=== PATIENT | male | born 1960 | race Caucasian/White ===

== ENCOUNTER 2025-03-01 06:49 | Day surgery (SDC) | payer MEDICARE, OTHER ==
[~2025-03-01] VITALS: Ht 171.4 cm; Wt 95.9 kg
[2025-03-01] MEDS ORDERED: LIDOCAINE 4% 50 ML SOLUTION TP ONE (06:50)
[2025-03-01] MEDS ORDERED: BENZOCAINE 20% 50 MCG/SPRAY 57 GM TP ONE (06:50)
[2025-03-01] MEDS ORDERED: ALBUTEROL SULFATE 2.5 MG/0.5 ML NEB SOLUTION NEB ONE (06:50)
[2025-03-01] MEDS ORDERED: LIDOCAINE 2% 11 ML JELLY TP ONE (06:50)
[2025-03-01] MEDS ORDERED: SODIUM CHLORIDE 0.9% 1,000 ML ONE (07:14)
[2025-03-01] MEDS ORDERED: DiphenhydrAMINE HCL 50 MG/ML VIAL ONE (07:35)
[2025-03-01] MEDS ORDERED: SODIUM TETRADECYL SULFATE 3% 60 MG/2 ML VIAL IVP ONE (07:35)
[2025-03-01] MEDS ORDERED: FLUMAZENIL 0.1 MG/ML 5 ML VIAL IVP ONE (07:35)
[2025-03-01] MEDS ORDERED: NALOXONE HCL 0.4 MG/ML VIAL ONE (07:35)
[2025-03-01] MEDS ORDERED: ATROPINE SULFATE 0.1 MG/ML 10 ML SYRINGE IVP ONE (07:36)
[2025-03-01] MEDS ORDERED: EPINEPHrine 1:10,000 [1 MG/10 ML] SYRINGE ONE (07:36)
[2025-03-01] MEDS ORDERED: MIDAZOLAM HCL 5 MG/ML VIAL ONE (07:39)
[2025-03-01] MEDS ORDERED: FentaNYL CITRATE PF 100 MCG/2 ML VIAL ONE (07:39)
[2025-03-01] MEDS ORDERED: MIDAZOLAM HCL 2 MG/2 ML VIAL ONE (07:45)
[2025-03-01] MEDS: SODIUM CHLORIDE 0.9% 1,000 ML IV ONE (08:21)
[2025-03-01] MEDS ORDERED: OMEP20CA12 PO (08:39)
[2025-03-01] MEDS ORDERED: TRAZ-257 PO (08:39)
[2025-03-01] MEDS ORDERED: POTA8CAP20 PO (08:39)
[2025-03-01] MEDS ORDERED: ASPI-1444 PO (08:39)
[2025-03-01] MEDS ORDERED: OXYB5TAB20 PO (08:39)
[2025-03-01] MEDS ORDERED: CLOZ100T61 PO (08:39)
[2025-03-01] MEDS ORDERED: ARIP10642 IM (08:39)
[2025-03-01] MEDS ORDERED: HYDR50CA6 PO (08:39)
[2025-03-01] MEDS ORDERED: METF-1211 PO (08:39)
[2025-03-01] MEDS ORDERED: GLYC1TAB27 PO (08:39)
[2025-03-01] MEDS ORDERED: HYDR25TA PO (08:39)
[2025-03-01] MEDS ORDERED: GABA-1181 PO (08:39)
[2025-03-01 09:25] VITALS: PULSE 82; RESP 16; O2SAT 99
[2025-03-01] MEDS ORDERED: MethylPREDNISolone SOD SUCC 125 MG/2 ML VIAL ONE (09:51)
[2025-03-01] MEDS: MethylPREDNISolone SOD SUCC 125 MG/2 ML VIAL IVP ONE (10:04)
[2025-03-01 12:45] LABS: GLUCOMETER DEV NAME(LOC) SDS.; GLUCOSE,POINT OF CARE 135 MG/DL (70-110)
== END 2025-03-01 12:45 | disposition home or self-care (01) ==
LOC: SURGERY 06:49
PROVIDERS: ATTEND Internal Medicine Critical Care Medicine
DX: R05.3 Chronic cough (principal); R04.2 Hemoptysis; J38.4 Edema of larynx; B37.0 Candidal stomatitis; I10 Essential (primary) hypertension; G47.30 Sleep apnea, unspecified; Z88.8 Allergy status to other drugs, medicaments and biological substances; F17.210 Nicotine dependence, cigarettes, uncomplicated; F31.9 Bipolar disorder, unspecified; F20.9 Schizophrenia, unspecified; Z79.82 Long term (current) use of aspirin; Z79.899 Other long term (current) drug therapy; Z98.890 Other specified postprocedural states
CPT/HCPCS: 31623; 82962; 87206; 87101; 87220; 87070; 88108; 31624; 94640; 71045; 87015; J3010; J2250; J2919; J7030; J0171; J0461; J1200; J2310; J3490; J7613; Z7610